=== PATIENT | female | born 1975 | race Caucasian/White ===

== ENCOUNTER 2023-02-27 14:15 | Emergency (ER) | payer MEDICARE ==
--- NOTE | 2023-02-27 14:21 | ED ---
General Adult HPI - General Source: patient, EMS Mode of arrival: EMS Limitations: no limitations <Chente Hackett - Last Filed: 02/27/23 14:20> <Tushar Bishop - Last Filed: 02/27/23 18:02> - General Stated complaint: HTN Time Seen by Provider: 02/27/23 14:20 - History of Present Illness Initial comments: 47-year-old female presents emergency Department with chief complaint of hypertension. Patient presented via EMS from PCPs office for blood pressure issues. She states she did not know she had high blood pressure. She was told her blood pressure was 240/120 at the office. She states she feels flushed feeling but denies any chest pain palpitations. She states she went to her new primary care physician for stomach issues. (Chente Hackett) This is a 47-year-old female with no past medical history and presents emergency department because he went to see a new primary medical care doctor and is her blood pressure was elevated there. Patient denies any headache patient denies numbness weakness. Patient denies any blurred vision. Patient denies any chest pain difficulty breathing or shortness of breath. Patient states she went to the primary medical care doctor recently because she has noted a little bit of occasional abdominal discomfort. Patient denies any diarrhea. Patient denies any fever chills or cough. Patient denies any back pain. Patient denies any dysuria hematuria urinary frequency. Patient states she has a family history of high blood pressure but she hasn't seen a physician in many many years (Tushar Bishop) - Related Data Previous Rx's Medication Instructions Recorded amLODIPine [Norvasc] 5 mg PO DAILY #10 tab 02/27/23 Allergies Allergy/AdvReac Type Severity Reaction Status Date / Time No Known Allergies Allergy Verified 02/27/23 17:33 Review of Systems ROS Other: All systems not noted in ROS Statement are negative. <Chente Hackett - Last Filed: 02/27/23 14:20> ROS Other: All systems not noted in ROS Statement are negative. <Tushar Bishop - Last Filed: 02/27/23 18:02> ROS Statement: Those systems with pertinent positive or pertinent negative responses have been documented in the HPI. General Exam <Chente Hackett - Last Filed: 02/27/23 14:20> <Tushar Bishop - Last Filed: 02/27/23 18:02> - General Exam Comments Initial Comments: Visual Physical Exam Vital signs reviewed General: Well-appearing, nontoxic, no acute distress. Head: Normocephalic, atraumatic Eyes: PERRLA, EOMI ENT: Airway patent Chest: Nonlabored breathing Skin: No visual rash, normal skin tone Neuro: Alert and oriented 3 Musculoskeletal: No gross abnormalities (Chente Hackett) GENERAL: Patient is well-developed and well-nourished. Patient is nontoxic and well- hydrated and is in mild distress. ENT: Neck is soft and supple. No significant lymphadenopathy is noted. Oropharynx is clear. Moist mucous membranes. Neck has full range of motion without eliciting any pain. EYES: The sclera were anicteric and conjunctiva were pink and moist. Extraocular movements were intact and pupils were equal round and reactive to light. Eyelids were unremarkable. PULMONARY: Unlabored respirations. Good breath sounds bilaterally. No audible rales rhonchi or wheezing was noted. CARDIOVASCULAR: There is a regular rate and rhythm without any murmurs gallops or rubs. ABDOMEN: Soft and nontender with normal bowel sounds. SKIN: Skin is clear with no lesions or rashes and otherwise unremarkable. NEUROLOGIC: Patient is alert and oriented x3. Cranial nerves II through XII are grossly intact. Motor and sensory are also intact. Normal speech, volume and content. Symmetrical smile. MUSCULOSKELETAL: Normal extremities with adequate strength and full range of motion. No lower extremity swelling or edema. No calf tenderness. LYMPHATICS: No significant lymphadenopathy is noted PSYCHIATRIC: Normal psychiatric evaluation. (Tushar Bishop) Course Vital Signs 02/27/23 02/27/23 02/27/23 14:18 15:53 16:09 Temperature 98 F 98.9 F 99.1 F Pulse Rate 88 87 Respiratory 16 20 Rate Blood Pressure 189/128 192/134 171/116 O2 Sat by Pulse 97 97 Oximetry 02/27/23 02/27/23 16:57 17:57 Temperature Pulse Rate 103 H 91 Respiratory 20 20 Rate Blood Pressure 158/96 128/88 O2 Sat by Pulse 95 99 Oximetry Medical Decision Making <Chente Hackett - Last Filed: 02/27/23 14:20> - Lab Data Result diagrams: 02/27/23 14:44 10/02/23 14:44 <Tushar Bishop - Last Filed: 02/27/23 18:02> - Medical Decision Making I performed a quick note portion of this chart signed Chente Hackett PA-C (Chente Hackett) EKG was interpreted by myself. EKG shows sinus rhythm at 96 bpm OR interval 128 QRS is 91 QT interval 358 QTC is 411. Patient's EKG shows no ST segment elevation or depression. Was pt. sent in by a medical professional or institution (, [facility], [facility], urgent care, hospital, or [facility]...) When possible be specific @ -Patient was sent in by the primary medical care doctor Did you speak to anyone other than the patient for history (EMS, parent, family, police, friend...)? What history was obtained from this source @ -No Did you review nursing and triage notes (agree or disagree)? Why? @ -I reviewed and agree with nursing and triage notes Were old charts reviewed (outside hosp., previous admission, EMS record, old EKG, old radiological studies, urgent care reports/EKG's, [facility] records)? Report findings @ -No old charts were reviewed Differential Diagnosis (chest pain, altered mental status, abdominal pain women, abdominal pain men, vaginal bleeding, weakness, fever, dyspnea, syncope, headache, dizziness, GI bleed, back pain, seizure, CVA, palpatations, mental health, musculoskeletal)? @ -Hypertensive emergency, hypertensive urgency, EKG interpreted by me (3pts min.). @ -As above X-rays interpreted by me (1pt min.). @ -X-ray shows no acute abnormality CT interpreted by me (1pt min.). @ -None done U/S interpreted by me (1pt. min.). @ -None done What testing was considered but not performed or refused? (CT, X-rays, U/S, labs)? Why? @ -None What meds were considered but not given or refused? Why? @ -None Did you discuss the management of the patient with other professionals (flaca jonas i.e. , [facility], [facility], lab, RT, psych nurse, social media coordinator, sales representative adding machines, teacher, air antisubmarine officer, briefcase sewer)? Give summary @ -No Was smoking cessation discussed for >3mins.? @ -No Was critical care preformed (if so, how long)? @ -No Were there social determinants of health that impacted care today? How? (Homelessness, low income, unemployed, alcoholism, drug addiction, transportati on, low edu. Level, literacy, decrease access to med. care, half-way, rehab)? @ -No Was there de-escalation of care discussed even if they declined (Discuss DNR or withdrawal of care, Hospice)? DNR status @ -No What co-morbidities impacted this encounter? (DM, HTN, Smoking, COPD, CAD, Cancer, CVA, ARF, Chemo, Hep., AIDS, mental health diagnosis, sleep apnea, morbid obesity)? @ -None Was patient admitted / discharged? Hospital course, mention meds given and route, prescriptions, significant lab abnormalities, going to OR and other pertinent info. @ -Patient received hydralazine IV and 0.5 of Ativan and the blood pressure came down nicely and she had no symptoms throughout her ED course and after lab work came back she was requesting discharged to follow-up with the primary medical care doctor. Patient was informed that her liver enzymes were mildly elevated and she will follow-up with her primary medical care doctor Undiagnosed new problem with uncertain prognosis? @ -No Drug Therapy requiring intensive monitoring for toxicity (Heparin, Nitro, Insulin, Cardizem)? @ -No Were any procedures done? @ -No Diagnosis/symptom? @ -Hypertensive urgency Acute, or Chronic, or Acute on Chronic? @ -Acute Uncomplicated (without systemic symptoms) or Complicated (systemic symptoms)? @ -Complicated Side effects of treatment? @ -No Exacerbation, Progression, or Severe Exacerbation? @ -No Poses a threat to life or bodily function? How? (Chest pain, USA, MO, pneumonia, PE, COPD, DKA, ARF, appy, cholecystitis, CVA, Diverticulitis, Homicidal, Suicidal, threat to staff... and all critical care pts) @ -Yes this could lead to MO or stroke (Tushar Bishop) - Lab Data Lab Results 02/27/23 02/27/23 Range/Units 14:44 14:44 WBC 6.4 (3.8-10.6) k/uL RBC 4.54 (3.80-5.40) m/uL Hgb 15.2 (11.4-16.0) gm/dL Hct 45.3 (34.0-46.0) % MCV 99.7 (80.0-100.0) fL MCH 33.5 (25.0-35.0) pg MCHC 33.6 (31.0-37.0) g/dL RDW 11.5 (11.5-15.5) % Plt Count 247 (150-450) k/uL MPV 7.8 Neutrophils % 60 % Lymphocytes % 29 % Monocytes % 7 % Eosinophils % 2 % Basophils % 0 % Neutrophils # 3.9 (1.3-7.7) k/uL Lymphocytes # 1.8 (1.0-4.8) k/uL Monocytes # 0.5 (0-1.0) k/uL Eosinophils # 0.1 (0-0.7) k/uL Basophils # 0.0 (0-0.2) k/uL Sodium 141 (137-145) mmol/L Potassium 4.3 (3.5-5.1) mmol/L Chloride 105 (98-107) mmol/L Carbon Dioxide 22 (22-30) mmol/L Anion Gap 14 mmol/L BUN 16 (7-17) mg/dL Creatinine 0.78 (0.52-1.04) mg/dL Est GFR (CKD-EPI)AfAm >90 (>60 ml/min/1.73 sqM) Est GFR (CKD-EPI)NonAf 90 (>60 ml/min/1.73 sqM) Glucose 95 (74-99) mg/dL Calcium 10.0 (8.4-10.2) mg/dL Magnesium 1.7 (1.6-2.3) mg/dL Total Bilirubin 0.7 (0.2-1.3) mg/dL AST 141 H (14-36) U/L ALT 131 H (4-34) U/L Alkaline Phosphatase 70 (38-126) U/L Total Protein 8.4 H (6.3-8.2) g/dL Albumin 4.8 (3.5-5.0) g/dL Disposition <Chente Hackett - Last Filed: 02/27/23 14:20> Is patient prescribed a controlled substance at d/c from ED?: No Time of Disposition: 17:46 <Tushar Bishop - Last Filed: 02/27/23 18:02> Clinical Impression: Hypertensive urgency Disposition: HOME SELF-CARE Condition: Good Additional Instructions: Patient should return to the emergency department if she has any chest pain difficulty breathing headache blurred vision or any other new symptoms. Patient should take Norvasc as prescribed Prescriptions: amLODIPine [Norvasc] 5 mg PO DAILY #10 tab Referrals: Sabino Berrios MD [Primary Care Provider] - 1-2 days
[2023-02-27 15:07] LABS: Basophils % (A) 0 %; Eosinophils # (A) 0.1 k/uL (0-0.7); Eosinophils % (A) 2 %; HCT 45.3 % (34.0-46.0); HGB 15.2 gm/dL (11.4-16.0); Lymphocytes # (A) 1.8 k/uL (1.0-4.8); Lymphocytes % (A) 29 %; MCH 33.5 pg (25.0-35.0); MCHC 33.6 g/dL (31.0-37.0); MCV 99.7 fL (80.0-100.0); Mean Platelet Volume 7.8; Monocytes # (A) 0.5 k/uL (0-1.0); Monocytes % (A) 7 %; Neutrophils # (A) 3.9 k/uL (1.3-7.7); Neutrophils % (A) 60 %; Platelet Count 247 k/uL (150-450); RBC 4.54 m/uL (3.80-5.40); RDW 11.5 % (11.5-15.5); WBC 6.4 k/uL (3.8-10.6)
[2023-02-27 15:19] LABS: ALT 131 U/L (4-34); AST 141 U/L (14-36); African American GFR (CKD) >90 (>60 ml/min/1.73 sqM); Albumin 4.8 g/dL (3.5-5.0); Alkaline Phosphatase 70 U/L (38-126); Anion Gap 14 mmol/L; Blood Urea Nitrogen 16 mg/dL (7-17); Carbon Dioxide 22 mmol/L (22-30); Chloride 105 mmol/L (98-107); Glucose 95 mg/dL (74-99); Magnesium 1.7 mg/dL (1.6-2.3); Non-African American GFR(CKD) 90 (>60 ml/min/1.73 sqM); Potassium 4.3 mmol/L (3.5-5.1); Sodium 141 mmol/L (137-145); Total Bilirubin 0.7 mg/dL (0.2-1.3); Total Protein 8.4 g/dL (6.3-8.2)
[2023-02-27 15:57] VITALS: RESP 20
[2023-02-27] MEDS ORDERED: hydrALAZINE HCL 20 MG/ML 1 ML VIAL IVP STA (16:12)
[2023-02-27 16:18] VITALS: TEMP 99.1
[2023-02-27] MEDS: LORazepam 2 MG/ML INJ IV STA ×2 (16:37→17:51)
--- NOTE | 2023-02-27 17:10 | XR ---
EXAMINATION TYPE: XR chest 2V DATE OF EXAM: 02/27/2023 4:52 PM CLINICAL INDICATION:Female, 47 years old with history of Difficulty breathing ; [facility] COMPARISON: None TECHNIQUE: XR chest 2V Frontal and lateral views of the chest. FINDINGS: Lungs/Pleura: There is no evidence of pleural effusion, focal consolidation, or pneumothorax. Pulmonary vascularity: Unremarkable. Heart/mediastinum: Cardiomediastinal silhouette is unremarkable. Musculoskeletal: No acute osseous pathology. IMPRESSION: No acute cardiopulmonary disease/process.
[2023-02-27] MEDS ORDERED: amLODIPine 5 MG TAB PO STA (17:48)
[2023-02-27 18:08] VITALS: BP 128/88; PULSE 91
== END 2023-02-27 18:06 | disposition home or self-care (01) ==
LOC: EC 14:15
DX: I16.0 Hypertensive urgency (principal); I10 Essential (primary) hypertension
CPT/HCPCS: 36415; 93005; 80053; 83735; 85025; 71046; 99284; 96374; 96375; J2060; J0360

== ENCOUNTER → 2023-03-15 | Outpatient (CLI) | payer MEDICARE ==
--- NOTE | 2023-03-15 09:55 | CT ---
EXAMINATION TYPE: CT brain wo con DATE OF EXAM: 03/15/2023 COMPARISON: None HISTORY: headache CT DLP: 1133.6 mGycm. Automated Exposure Control for Dose Reduction was Utilized. TECHNIQUE: CT scan of the head is performed without contrast. FINDINGS: There is no acute intracranial hemorrhage, mass effect, or midline shift identified. The ventricles and sulci are within normal limits in size. The globes are intact and the visualized sin uses are clear. IMPRESSION: No acute intracranial hemorrhage, mass effect, or midline shift is seen. Findings persist would recommend MRI.
== END | disposition home or self-care (01) ==
LOC: RADCTMAIN 09:09
PROVIDERS: ATTEND Family Medicine
DX: R51.9 Headache, unspecified (principal)
CPT/HCPCS: 70450

== ENCOUNTER → 2023-04-07 | Outpatient (CLI) | payer MEDICARE ==
--- NOTE | 2023-04-07 09:47 | US ---
EXAMINATION TYPE: US liver DATE OF EXAM: 04/07/2023 COMPARISON: NONE CLINICAL INDICATION: Female, 47 years old with history of F10.10 alcohol abuse x 1 year - quit. Epiga stric pain, RUQ lump w/ bending, HTN, and abnormal liver enzymes TECHNIQUE: Multiple sonographic images of the right upper quadrant are obtained. FINDINGS: EXAM MEASUREMENTS: Liver Length: 15.4 cm Gallbladder Wall: 0.1 cm CBD: 0.5 cm Right Kidney: 10.7 x 5.0 x 5.2 cm COMPENSATION ASSOCIATE NOTES:Unremarkable exam; no evidence of hernia at patients AO Pancreas: wnl Liver: Increased attenuation Gallbladder: wnl Evidence for sonographic Talbot's sign: No CBD: wnl Right Kidney: wnl Unremarkable appearance of the pancreas. Liver demonstrates increased echogenicity without focal lesi on. No gallstones, wall thickening, or surrounding fluid. Negative sonographic Talbot's sign. Common bile duct is within normal limits. Right kidney is unremarkable without evidence of hydronephrosis, n ephrolithiasis, or solid mass. No evidence of hernia at patient's region of concern. IMPRESSION: 1. No acute process. 2. No evidence of hernia at the patient's region of concern. 3. Hepatic steatosis.
== END | disposition home or self-care (01) ==
LOC: RADUSWWP 08:49
PROVIDERS: ATTEND Family Medicine
DX: I10 Essential (primary) hypertension (principal); K76.0 Fatty (change of) liver, not elsewhere classified; R74.01 Elevation of levels of liver transaminase levels; F10.10 Alcohol abuse, uncomplicated
CPT/HCPCS: 76705

== ENCOUNTER → 2023-12-27 | Outpatient (CLI) | payer MEDICARE ==
--- NOTE | 2023-12-27 13:04 | CT ---
EXAMINATION TYPE: CT foot RT wo con DATE OF EXAM: 12/27/2023 COMPARISON: No radiographic correlation available HISTORY: 48-year-old female S92.411A, DISP FX OF PROXIMAL PHALANX OF RIGHT great toe. TECHNIQUE: Contiguous axial scanning of the right foot without IV contrast. Coronal and sagittal christy nstructions performed. CT DLP: 406.8 mGycm Automated exposure control for dose reduction was used. FINDINGS: There is a mildly comminuted oblique fracture of the first proximal phalanx. Fracture extends from th e lateral margin of the mid shaft cortex to the first IP joint articular surface where there is appro ximate 5 mm wide area of articular surface disruption, axial image 30. Only minimal separation of fra cture fragments by 2 mm. Raymundo's toe. No additional acute fracture, subluxation, dislocation is seen. The tibiotalar joint an d subtalar joints are intact. Small delineation of the Achilles tendon. IMPRESSION: MILDLY COMMINUTED FRACTURE FIRST PROXIMAL PHALANX WITH OBLIQUE FRACTURE EXTENDING FROM THE MID SHAFT INTO THE IP JOINT ARTICULAR SURFACE WHERE THERE IS 5 MM OF ARTICULAR SURFACE DISRUPTION. ONLY MINIMAL SEPARATION OF FRACTURE FRAGMENTS BY 2 MM.
== END | disposition home or self-care (01) ==
LOC: RADCTMAIN 11:42
PROVIDERS: ATTEND Orthopaedic Surgery
DX: S92.411A Displaced fracture of proximal phalanx of right great toe, initial encounter for closed fracture (principal); S92.811A Other fracture of right foot, initial encounter for closed fracture

== ENCOUNTER 2024-01-12 06:30 | Day surgery (SDC) | payer MEDICARE ==
[2024-01-12] MEDS ORDERED: MIDAZOLAM 2 MG/2 ML VIAL ONE (07:23)
[2024-01-12] MEDS ORDERED: LIDOCAINE 1% INJ 10MG/ML (20 ML MDV) ONE (07:23)
[2024-01-12] MEDS ORDERED: fentaNYL (PF) 50 MCG/ML 2 ML AMP ONE (07:23)
[2024-01-12] MEDS ORDERED: PROPOFOL 10 MG/ML 20 ML VIAL IV ONE (07:23)
[2024-01-12] MEDS ORDERED: SODIUM CHLORIDE 0.9% 1,000 ML BAG ONE (09:23)
[2024-01-12] MEDS ORDERED: ceFAZolin 1,000 MG VIAL ONE ×2 (09:23)
[2024-01-12] MEDS ORDERED: BUPIVACAINE (PF) 0.5% 30 ML VIAL ONE (09:23)
[2024-01-12] MEDS ORDERED: SODIUM CHLORIDE 0.9% 50 ML BAG ONE (09:23)
[2024-01-12] MEDS ORDERED: DEXAMETHASONE SOD PHOSPHATE 4 MG/ML 1 ML VIAL ONE (09:23)
[2024-01-12] MEDS ORDERED: ONDANSETRON 4 MG/2 ML VIAL ONE (09:23)
[2024-01-12] MEDS ORDERED: LACTATED RINGERS 1,000 ML BAG ONE (09:23)
--- NOTE | 2024-02-09 10:34 | OP ---
OPERATIVE REPORT DATE OF SERVICE : 01/12/2024 PREOPERATIVE DIAGNOSIS: Displaced fracture, proximal phalanx, right great toe. POSTOPERATIVE DIAGNOSIS: Displaced fracture, proximal phalanx, right great toe. PROCEDURE PERFORMED: Open reduction with internal fixation, right proximal phalanx fracture of the great toe. ANESTHESIA: General. HEMOSTASIS: Right ankle tourniquet at 250 mmHg. ESTIMATED BLOOD LOSS: 1 mL. MATERIALS: Synthes 2.0 mm x 12 mm cortical screws x2, one 1.25 mm K-wire. INJECTABLES: 20 mL of 0.25% Marcaine preop. SPECIMENS: None. COMPLICATIONS: None. DESCRIPTION OF PROCEDURE: As follows: The patient was brought into the operating room and placed on table in the supine position. Time-out was taken to confirm the correct patient, identifiers, correct laterality of surgery, and correct procedure. Once all staff in the room were in agreement of the time-out, the patient was induced and placed under general anesthesia. A well-padded tourniquet was placed on the right ankle, and then, 20 mL of 0.25% Marcaine was injected as a forefoot block. The foot was prepped and draped in the usual manner. The foot was exsanguinated and the tourniquet inflated to 250 mmHg. Attention was directed over the great toe. A linear incision was made over the proximal phalanx between the long extensor tendon and the neurovascular structures. The incision was deepened down to the subcutaneous tissue, careful to identify, avoid, and retract any neurovascular structures and cauterize any bleeding vessels. Dissection was carried down to the periosteum, which was incised and reflected in a full-thickness layer, which included the long extensor tendon to expose the proximal phalanx. A periosteal elevator was used to identify the fracture line and separate the bony fragments. The same elevator was used to debride the bony surfaces to remove any soft tissue and expose healthy bleeding bone. The articular fragment on the distal medial aspect of the head of the proximal phalanx was identified and mobilized. It was unstable and rotated. It was de-rotated and realigned. The main fracture fragment was reduced and then clamped in place. Fluoroscopy was used to confirm the reduction, which had to be adjusted until it was normally aligned. A small guidewire was then placed across the fracture to maintain the alignment. Then, the small articular fragment was rotated in position. However, there was some bone loss and very little structure to maintain the alignment. There was a small piece of bone that had fractured off the proximal portion of the long arm of the fracture, which was not attached any longer. Therefore, it was utilized as a structural graft to elevate the articular surface of the smaller fragment. Imaging showed that the joint was close to anatomic alignment. 2.0 mm x 12 mm screws were placed across the main fracture fragment to compress and maintain the position. A smooth wire was placed to the small articular fragment to maintain its position and fluoroscopy confirmed significantly improved alignment of the fracture with near complete roman catholic of the articular surface contour. The pin was cut flush with the bone. The wound was irrigated thoroughly with antibiotic saline. Deep closure was done with 2-0 Vicryl. Subcutaneous closure was done with 4-0 Monocryl. The skin closure was done with 4-0 Stratafix in a running subcuticular manner. Dermal glue was applied over the skin and the incision, and allowed to dry. Steri-Strips were placed over the incision. Nonadherent gauze and dry sterile dressings were applied to the right foot. The tourniquet was released and capillary refill returned to all digits on the right foot. The patient was then placed in a short fracture boot with the ankle in neutral position. Anesthesia was reversed, and the patient was taken to the recovery with vital signs stable. IVETT / IJN: [id number] /
== END 2024-01-12 10:25 ==
LOC: OR 06:30
PROVIDERS: ATTEND Podiatrist
DX: S92.422A Displaced fracture of distal phalanx of left great toe, initial encounter for closed fracture (principal); I10 Essential (primary) hypertension; K76.0 Fatty (change of) liver, not elsewhere classified; Z79.899 Other long term (current) drug therapy; X58.XXXA Exposure to other specified factors, initial encounter